=== PATIENT | male | born 1965 | race Caucasian/White ===

== ENCOUNTER → 2020-06-26 11:15 | Outpatient (REF) | payer OTHER, SELFPAY | LOC: ANHLAB 11:15 | PROVIDERS: PCP Internal Medicine; Visit Provider Nurse Practitioner | DX: C44.612 Basal cell carcinoma of skin of right upper limb, including shoulder (principal); C44.519 Basal cell carcinoma of skin of other part of trunk | CPT/HCPCS: 88305 ==

== ENCOUNTER → 2020-08-20 07:16 | Outpatient (REF) | payer OTHER, SELFPAY | LOC: ANHLAB 07:16 | PROVIDERS: PCP Internal Medicine; Visit Provider Nurse Practitioner | DX: C44.612 Basal cell carcinoma of skin of right upper limb, including shoulder (principal); C44.519 Basal cell carcinoma of skin of other part of trunk | CPT/HCPCS: 88305; 88331 ==

== ENCOUNTER 2020-11-30 07:32 | Outpatient (CLI) | payer OTHER, SELFPAY ==
--- NOTE | ~2020-11-30 | US_ITS ---
EXAMINATION: US arterial ankle brachial ind DATE: 11/30/2020 08:11 INDICATION: Open wound of a lower leg TECHNIQUE: Segmental pressures and plethysmographic and Doppler waveforms of the brachial and lower e xtremity arteries were obtained. COMPARISON: None. FINDINGS: Right and left brachial artery pressures of 132 mm Hg and 127 mm Hg, respectively, are concordant (no rmal difference <= 30 mmHg). The right ankle-brachial index (TYSON) is 1.16 (normal >= 0.9-1.0). The right great toe-brachial index (TBI) is 1.09 (normal >= 0.65). Arterial Doppler waveforms are triphasic. The left TYSON is 1.20. The left TBI is 1.11. Arterial Doppler waveforms are triphasic. IMPRESSION: Bilateral normal TYSON and TBI Reviewed, dictated and finalized at [facility]. Reviewed, dictated and finalized at location [facility]. 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
== END 2020-11-30 07:33 | disposition home or self-care (01) ==
LOC: ANHIMG 07:38
PROVIDERS: PCP Internal Medicine; Visit Provider Nurse Practitioner
DX: S81.809A Unspecified open wound, unspecified lower leg, initial encounter (principal); X58.XXXA Exposure to other specified factors, initial encounter
CPT/HCPCS: 93922

== ENCOUNTER → 2020-12-04 14:44 | Outpatient (REF) | payer OTHER, SELFPAY | LOC: ANHLAB 14:44 | PROVIDERS: PCP Internal Medicine; Visit Provider Nurse Practitioner | DX: D49.2 Neoplasm of unspecified behavior of bone, soft tissue, and skin (principal) | CPT/HCPCS: 88305 ==

== ENCOUNTER 2020-12-31 07:34 | Outpatient (RCR) | payer OTHER, SELFPAY ==
[2020-12-17 14:05] VITALS: BMI 34.4
--- NOTE | 2020-12-31 12:51 | WPDPN ---
Progress Note: A&P Assessment and Plan (1) Open wound of leg: Code(s): S81.809A - Unspecified open wound, unspecified lower leg, initial encounter Status: Acute Assessment and Plan: Leg is healing well. We will see him back in wound care. We discussed the care. What monitor for. Answered all of his questions. He will call with any questions or concerns. Will continue to follow with wound care. (2) Skin neoplasm: Code(s): D49.2 - Neoplasm of unspecified behavior of bone, soft tissue, and skin Status: Acute (3) Stasis dermatitis: Code(s): I87.2 - Venous insufficiency (chronic) (peripheral) Status: Acute Exam Narrative: Exam Narrative: Right lower extremity 1 of the wounds has healed. The other has good granulation significant decrease in size. No signs of infection. No hematoma. No seroma. See wound care measurements. Objective Data Meds/Results Medications: Active Medications Generic Name Dose Route Start Last Admin Trade Name Freq PRN Reason Stop Dose Admin Clotrimazole 1 applic 12/17/20 13:21 Betamethasone/Clotrimazole Cr 15 Gm Tube TOPICAL 03/16/21 23:55 PRN PRN Wound Care Mupirocin 1 applic 12/17/20 13:19 Mupirocin 2% Oint 22 Gm Tube TOPICAL 03/16/21 23:55 PRN PRN Wound Care Wound Care/Dressing Products 1 patch 12/17/20 13:20 Mepilex Transfer Drsg 6x8 TOPICAL 03/16/21 23:55 PRN PRN Wound Care Subjective Date/time seen: 12/31/20 12:51 He is here today in follow-up of right lower extremity open wounds. He says he is doing great. No complaints. No fevers or chills. No nausea vomiting. He has noticed wounds getting significantly smaller in size.
--- NOTE | 2021-01-28 12:18 | PCWOUND ---
WOCN NOTE Patient did not show up for appointment or call.
== END 2021-03-04 09:21 | disposition home or self-care (01) ==
LOC: ANHWOC 07:34
PROVIDERS: PCP Internal Medicine; Visit Provider Surgery Plastic and Reconstructive Surgery
DX: I87.2 Venous insufficiency (chronic) (peripheral) (principal)
CPT/HCPCS: 99212; A9270; G0463

== ENCOUNTER 2021-01-31 16:33 | Outpatient (CLI) | payer OTHER, SELFPAY | END 2021-01-31 16:34 | disposition home or self-care (01) | LOC: ANHCOVIDVC 16:33 | PROVIDERS: PCP Internal Medicine | DX: Z23 Encounter for immunization (principal) | CPT/HCPCS: 0001A; 91300 ==

== ENCOUNTER 2021-02-21 16:34 | Outpatient (CLI) | payer OTHER, SELFPAY | END 2021-02-21 16:35 | disposition home or self-care (01) | LOC: ANHCOVIDVC 16:34 | PROVIDERS: PCP Family Medicine | DX: Z23 Encounter for immunization (principal) | CPT/HCPCS: 0002A; 91300 ==

== ENCOUNTER 2022-07-24 11:53 | Outpatient (CLI) | payer OTHER, SELFPAY ==
--- NOTE | ~2022-07-24 | XR_ITS ---
EXAMINATION: XR foot LT 2V DATE: 07/24/2022 12:09 INDICATION: Localized infection the skin and subcutaneous tissues at the left foot one month after st epping on a nail. TECHNIQUE: Dorsoplantar and lateral views of the left foot were obtained. COMPARISON: None. FINDINGS: Old healed diaphyseal fracture of the fourth metatarsal. Polyarticular osteoarthritis throughout the left foot and ankle, severe at the first metatarsophalangeal joint and moderate at severity at the ta rsal metatarsal and multiple interphalangeal joints and mild at the remaining joints at the left foot and ankle. There appears be solid fusion across the second proximal interphalangeal joint. No cortic al erosions, osteolysis or periosteal reaction to suggest osteomyelitis. Moderate Achilles calcaneal spur. Small heterotopic ossicles along the proximal plantar aponeurosis. No radiopaque foreign bodies . IMPRESSION: 1. Moderate to severe polyarticular osteoarthritis at the left foot. No regions suspicious for osteom yelitis. Reviewed, dictated and finalized at location [facility]. IMPRESSION: 1. Moderate to severe polyarticular osteoarthritis at the left foot. No regions suspicious for osteomyelitis.
== END 2022-07-24 11:54 ==
PROVIDERS: PCP Family Medicine; Visit Provider Nurse Practitioner Family
DX: L08.9 Local infection of the skin and subcutaneous tissue, unspecified (principal); M19.072 Primary osteoarthritis, left ankle and foot; M77.32 Calcaneal spur, left foot
CPT/HCPCS: 73620

== ENCOUNTER → 2022-11-06 09:23 | Outpatient (CLI) | payer OTHER, SELFPAY ==
--- NOTE | ~2022-11-06 | XR_ITS ---
EXAMINATION: XR shoulder LT min 2V DATE: 11/06/2022 09:37 INDICATION: Left shoulder pain. TECHNIQUE: 4 views of left shoulder were obtained. COMPARISON: None. FINDINGS: Bone alignment is normal. No fracture. There is mild osteoarthritis of glenohumeral joint a nd moderate osteoarthritis of the acromioclavicular joint. IMPRESSION: 1. Polyarticular osteoarthritis. Reviewed, dictated and finalized at location [facility]. 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
== END ==
PROVIDERS: PCP Family Medicine; Visit Provider Nurse Practitioner Family
DX: M19.012 Primary osteoarthritis, left shoulder (principal)
CPT/HCPCS: 73030

== ENCOUNTER → 2022-12-02 11:13 | Outpatient (CLI) | payer OTHER, SELFPAY ==
--- NOTE | ~2022-12-02 | XR_ITS ---
Left foot Technique: AP, oblique, and lateral views were obtained. Clinical History: Local infection no skin/subcutaneous tissue COMPARISON: 07/24/2022 Findings: No acute fracture or dislocation is seen. Probable old, healed fracture deformity of the fi fth proximal metatarsal. There is severe degenerative change of the first metatarsophalangeal joint. There is moderate to severe degenerative change of the second through fifth tarsometatarsal joints. M ild degenerative change of the tibiotalar joint noted. Large os trigonum noted. Possible focal soft t issue ulcer at the plantar aspect of the foot at the level of the MTP joints. Impression: No acute fracture or evidence for osteomyelitis. Advanced degenerative changes at the first MTP joint and second through fifth TMT joints, stable from prior exam. Probable soft tissue ulcer to plantar aspect of the foot at the level of the MTP joints. Correlate [facility] physical exam. Reviewed, dictated and finalized at [facility]. R FINISHER Impression: No acute fracture or evidence for osteomyelitis. Advanced degenerative changes at the first MTP joint and second through fifth T MT joints, stable from prior exam. Probable soft tissue ulcer to plantar aspect of the foot at the level of the MT P joints. Correlate with physical exam.
== END ==
PROVIDERS: PCP Family Medicine; Visit Provider Nurse Practitioner Family
DX: L08.9 Local infection of the skin and subcutaneous tissue, unspecified (principal); M19.072 Primary osteoarthritis, left ankle and foot
CPT/HCPCS: 73620

== ENCOUNTER 2022-12-09 14:10 | Emergency (ER) | payer OTHER, SELFPAY ==
--- NOTE | ~2022-12-09 | XR_ITS ---
EXAM: XR foot LT min 3V DATE: 12/09/2022 20:32 HISTORY: stepped on nail in august, wound to plantar side left foot . COMPARISON: 12/02/2022. FINDINGS: Normal to increased mineralization. No acute fracture or dislocation. No lytic or blastic lesion. No obvious erosion or periosteal change. Severe periarticular arthritis, may be secondary to degenerative, inflammatory or neuropathic joint arthropathy. Plantar soft tissue defect at the ball o f the foot. Forefoot soft tissue swelling. IMPRESSION: No radiographic evidence of osteomyelitis. No radiopaque foreign body. Reviewed, dictated and finalized at location [facility]. ERCIAL REAL ESTATE ASSISTANT IMPRESSION: No radiographic evidence of osteomyelitis. No radiopaque foreign josiah dy.
[2022-12-09 14:12] VITALS: BP 144/84; PULSE 70; RESP 18; TEMP 36.6; O2SAT 99
[2022-12-09 18:09] VITALS: BP 124/84; PULSE 67; RESP 18; O2SAT 100
[2022-12-09 20:16] LABS: Basophils Percent Auto 0.5 % (0.2-1.2); Eosinophils Absolute Auto 0.2 K/mm3 (0-0.3); Eosinophils Percent Auto 2.8 % (0-4.4); Hematocrit 44.4 % (42.0-52.0); Hemoglobin 15.1 g/dL (14.0-18.0); Immature Granulocyte Absolute 0.02 K/mm3 (0.00-0.031); Immature Granulocyte Percent A 0.3 % (0-0.5); Lymphocytes Percent Auto 38.7 % (18.3-44.2); Mean Corpuscular Volume 91.2 fl (80-100); Mean Platelet Volume 9.6 fl (7.4-10.4); Monocytes Absolute Auto 0.6 K/mm3 (0.1-0.6); Monocytes Percent Auto 8.1 % (2.6-8.5); Neutrophils Absolute Auto 3.7 K/mm3 (1.3-6.7); Neutrophils Percent Auto 49.6 % (45.5-73.1); Platelet Count Result 192 k/mm3 (150-375); Red Blood Count 4.87 M/mm3 (4.6-6.20); Red Cell Distribution Width 12.6 % (11.5-14.5); White Blood Count 7.5 K/mm3 (4.5-10.0)
[2022-12-09 20:30] VITALS: BP 145/96; PULSE 58; RESP 18; O2SAT 100
[2022-12-09 20:31] LABS: Alanine Aminotransferase 33 U/L (6-50); Albumin Level 4.6 g/dL (3.5-5.1); Alkaline Phosphatase 67 U/L (38-126); Anion Gap 6 mmol/L (8-16); Aspartate Amino Transferase 32 U/L (17-59); Bilirubin,Total 1.3 mg/dL (0.2-1.3); Blood Urea Nitrogen 20 mg/dL (9-20); CRP < 0.5 mg/dL (<1.0); Calcium 9.3 mg/dL (8.4-10.2); Carbon Dioxide 30 mmol/L (22-30); Chloride 103 mmol/L (98-107); Estimated CRCL calculation 101 ml/min; Estimated Glomerular Filt Rate > 60; Glucose 97 mg/dL (65-110); Potassium 4.9 mmol/L (3.4-5.0); Sodium 139 mmol/L (137-145)
--- NOTE | 2022-12-09 20:31 | ED.LOWEXIN ---
HPI - Extremity Injury (Lower) General Chief Complaint: Extremity Injury, Lower Stated Complaint: left foot pain Time Seen by Provider: 12/09/22 19:53 Source: patient Mode of arrival: ambulatory Limitations: no limitations History of Present Illness HPI Narrative: Patient is a 57 y/o male who presents to the ED with c/o L foot wound. Patient reports he stepped on a nail in August 2022 on his left plantar foot, between his second and third metacarpals. He reports the wound had nearly closed after the initial incident, but seem to reopen and become infected in October. He saw his primary care doctor and was prescribed Augmentin in October. The wound has continued to remain open. It has now formed a dime sized ulceration to the ball of his foot. He is currently on Keflex, but denies improvement. He notes the wound has been draining some serous drainage. He has been using a wound cream. He has been walking on this, but has pain with it. Denies any fever, nausea, vomiting. Patient denies a history of diabetes. He does report some neuropathy in his feet however. Patient has an appointment with a raw finish mill operator next week. Related Data Allergies Allergy/AdvReac Type Severity Reaction Status Date / Time No Known Allergies Allergy Verified 07/24/22 11:06 Review of Systems Review of Systems: CONSTITUTIONAL: Denies fever, chills, or sweats. CARDIOVASCULAR: Denies chest pain. RESPIRATORY: Denies dyspnea. GASTROINTESTINAL: Denies abdominal pain, nausea, vomiting. SKIN: See HPI. MUSCULOSKELETAL: See HPI. NEUROLOGIC: Denies headache or weakness. All systems reviewed & are unremarkable except as noted in HPI and below PMFSH Past Medical History Medical History BMI 31.0-31.9,adult BMI 32.0-32.9,adult BMI 33.0-33.9,adult Essential hypertension Gastroesophageal reflux disease without esophagitis Hyperkalemia MDD (major depressive disorder) Poor glycemic control Screening for prostate cancer Stasis dermatitis Surgical History Surgical History H/O foot surgery H/O shoulder surgery History of carpal tunnel release Family History Family History Mother Hypertension Family history of arthritis Family history of kidney disease Father Family history of malignant neoplasm of bone Sibling Hypertension Arthritis Social History Social History Years smoked: 5 Smoking status: Former smoker Tobacco type: cigarettes Second hand tobacco smoke exposure: No Smoking end date: 10/26/85 Alcohol intake: current Alcohol use details: Social Substance use: never Substance use type: does not use Living arrangements: with family Occupation/Education: occupation 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 HEAD: Normocephalic, atraumatic. NECK: Supple. No adenopathy, no masses. RESPIRATORY: Airway patent, respirations nonlabored. Clear to auscultation bilaterally, no rales, rhonchi, wheezing. CARDIOVASCULAR: Regular rate and rhythm without murmurs, rubs, or gallops. Pedal pulses 2+ and equal bilaterally. ABDOMINAL: Soft, nontender, nondistended, no hepatosplenomegaly. Normoactive BS. MUSCULOSKELETAL: Moves all extremities. Strength/ROM intact without gross deformities. Distal sensation to left toes intact. 1X1cm ulceration to plantar aspect of ball of L foot between 3rd/4th metatarsals. Wound approximately 0.5-1cm deep. Mostly beefy red tissue, small area of macerated tissue in center of ulcer. Thick surrounding callus formation to ball of foot. Minimal tenderness over calloused regions. N
[2022-12-09 20:57] LABS: Erythrocyte Sedimentation Rate 12 mm/hr (0-20)
== END 2022-12-09 22:22 | disposition home or self-care (01) ==
PROVIDERS: Emergency Provider Physician Assistant; PCP Family Medicine
DX: L97.521 Non-pressure chronic ulcer of other part of left foot limited to breakdown of skin (principal); K21.9 Gastro-esophageal reflux disease without esophagitis; I10 Essential (primary) hypertension; Z87.891 Personal history of nicotine dependence
CPT/HCPCS: 36415; 73630; 80053; 85025; 85652; 86140; 99283

== ENCOUNTER → 2022-12-25 08:19 | Outpatient (CLI) | payer OTHER, SELFPAY ==
--- NOTE | ~2022-12-25 | MR_ITS ---
MRI of the left foot MEDICAL HISTORY: Chronic ulcer TECHNIQUE: Sagittal T1-weighted and STIR images, axial proton-density and proton-density fat-sat imag es, and coronal T1-weighted, STIR, and proton-density fat-sat images were performed. FINDINGS: There is no confluent hypointense T1 marrow signal to suggest osteomyelitis. No acute fract ure seen. There is severe osteoarthritis of the first metatarsophalangeal joint, with joint space darlyn rowing and marked osteophyte formation. There is also advanced degenerative change of the sesamoid me tatarsal articulations at the first MTP joint region. There is mild degenerative change of the interp halangeal joint of the great toe. Remaining joint spaces are relatively well-preserved. There is a chronic healed fracture deformity of the fourth metatarsal shaft versus other chronic ashly gn-appearing periosteal thickening. No significant joint effusion identified in the foot. Flexor and extensor tendons are intact. There is an apparent chronic soft tissue ulcer at the plantar aspect of the foot at the second metatarsal head region. No abscess evident. No intermetatarsal burs itis or Khan's neuroma. IMPRESSION: Soft tissue ulcer to plantar aspect of the foot at the second metatarsal head region. No abscess evid ent. No evidence for osteomyelitis. Severe osteoarthritis of the first MTP joint and sesamoid metatarsal articulations. Reviewed, dictated and finalized at [facility]. RRAL MANAGER IMPRESSION: Soft tissue ulcer to plantar aspect of the foot at the second metatarsal head r egion. No abscess evident. No evidence for osteomyelitis. Severe osteoarthritis of the first MTP joint and sesamoid metatarsal articulati ons.
== END ==
PROVIDERS: PCP Family Medicine; Visit Provider Podiatrist Foot & Ankle Surgery
DX: L97.529 Non-pressure chronic ulcer of other part of left foot with unspecified severity (principal); M19.072 Primary osteoarthritis, left ankle and foot
CPT/HCPCS: 73718

== ENCOUNTER 2025-03-15 08:51 | Outpatient (CLI) | payer OTHER, SELFPAY ==
--- NOTE | ~2025-03-15 | XR_ITS ---
Right Knee Technique: AP, lateral, and sunrise views were obtained. Clinical History: Pain Findings: No fracture or dislocation is seen. There is severe tricompartmental degenerative change. T here is medial compartment narrowing with extensive osteophyte formation throughout the knee. There i s probable subchondral cystic change at the central aspect of the proximal tibia. Soft tissues are un remarkable. No joint effusion is seen. Impression: Severe tricompartmental osteoarthritis, as detailed above. Reviewed, dictated and finalized at location M. Impression: Severe tricompartmental osteoarthritis, as detailed above.
--- OUTSIDE RECORDS SUMMARY | 2025-03-15 09:39 | XMS_ITS | Clinical Summary ---
Author Organization [facility] Address [address] [place] [address] Care Team Providers Care Name Role Phone Unavailable Primary Care Provider Unavailabl e Source Comments [facility],non-owned Affiliates and Associated Physician Practices is amultiple site organization consisting of ambulatory clinics and hospital sitesin [place], [place], [place] and [place]. This disclosure is being madepursuant to the Care Everywhere program and may not contain all information available regarding this patient. 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 SERVICES COORDINATOR Gender Identity Not on file Sexual Orientation Not on file Plan of Treatment Health Maintenance Due Date Last Done Comments COLOGUARD (AGES 45-75) - COL ON CA SCREENING 1965 COLON MONITORING 1965 COLONOSCOPY - COLON CA SCREENING 1965 CT COLONOGRAPHY - COLON CA SCREENING 1965 Colorectal Cancer Screening 1965 FIT - COLON CA SCREENING 1965 FLEX SIG - COLON CA SCREENING 1965 LIPID TESTING 1965 HIV SCREENING 1980 HEPATITIS C SCREENING 07/17/1983 DTAP/TDAP/TD VACCINES (1 - Tdap) 1984 HEPATITIS B VACCINE (1 of 3 - 19+ 3-dose series) 1984 PNEUMOCOCCAL VACCINE 50+ (1 of 1 - PCV) 2015 ZOSTER VACCINE (1 of 2) 2015 COVID-19 VACCINE (2023-2 5 season) 2024 DEPRESSION SCREENING 10/26/2024 INFLUENZA VACCINE (Season Ended) 2025 HIB VACCINE Aged Out No longer eligi ble based on patient's age to complete this topic HPV VACCINE Aged Out No longer eligi ble based on patient's age to complete this topic MENINGOCOCCAL (Group B) VACC INE SHARED DECISION-MAKING Aged Out No longer eligibl e based on patient's age to complete this topic MENINGOCOCCAL GROUPS A/C/Y/W VACCINE Aged Out No longer eligible b ased on patient's age to complete this topic Procedures Procedure Name Priority Date/Time Associated Diagnosis Comments DERMATOPATHOLOGY Routine 03/08/2025 3:33 AM CDT from Last 3 Months Results * DERMATOPATHOLOGY (03/08/2025 3:33 AM CDT) Case Report Dermatopathology Report Case: [id number] Authorizing Provider: Josafat Butler MD Collected: 03/08/2025 03:33 AM Ordering Location: [facility] - Received: 03/09/2025 02:27 PM DermPath Lab Pathologist: Rachel Herrera MD Specimen: Skin, right upper back 1:41 PM CDT DERMATOPATHOLOGY LABORATORY Final Diagnosis Specimen A. SKIN, right upper back: SEBORRHEIC KERATOSIS, INFLAMED (L82.0) PRESENT AT MARGIN 1:41 PM CDT DERMATOPATHOLOGY LABORATORY at 1341 CDT Clinical History Changing Lesion. Please check margins 1:41 PM CDT DERMATOPATHOLOGY LABORATORY Gross Description Specimen A: Received is one formalin filled container labeled with the patient's name and designated right upper back. The specimen consists of a shave biopsy measuring [id number] mm. Jar 0. 1:41 PM CDT DERMATOPATHOLOGY LABORATORY Microscopic Description Specimen A. SKIN, right upper back: There is hyperkeratosis, parakeratosis, papillomatosis, and acanthosis of the epidermis. There is a lymphohistiocytic infiltrate within the papillary dermis that is focally lichenoid. This lesion is present at the margin of the specimen. 5 1:41 PM CDT DERMATOPATHOLOGY LABORATORY Disclaimer An external and internal positive and negative controls are appropriate for the histochemical, immunohistochemical and immunofluorescence stain(s) in this case (if any), except where stated explicitly. The performance characteristics of the stain(s) cited in this report were developed and its performance characteristic determined by the Dermatopathology Laboratory at [facility], directed by Dr. Tierra Garcia. These tests need not be, and therefore are not, approved by the [place] Food and Drug Administration. The tests are used for clinical purposes. Billing Codes Specimen Charges Stain Charges 01609 1 5 1:41 PM CDT DERMATOPATHOLOGY LABORATORY Embedded Images 5 1:41 PM CDT DERMATOPATHOLOGY LABORATORY Pathology/Cytolo gy TISSUE SPECIMEN FROM SKIN / Unknown 03/08/2025 3:33 AM CDT 03/09/2025 2:27 PM CDT Josafatarmond Butler MD LAB - PATHOLOGY/CYTOLOGY ANGELITO CARRILLO Final Result DERMATOPATHOLOGY LABORATORY [facility] - Department of Dermatology [facility] Medicine [address] [place] [address], [address] [phone] from Last 3 Months Insurance CARE [facility]
--- OUTSIDE RECORDS SUMMARY | 2025-03-15 09:39 | XMS_ITS | Encounter Summary ---
Author Organization [facility] Address [address] [place] [address] Care Team Providers Care Die Forger Name Role Phone Unavailable Primary Care Provider Unavailabl e Encounter Details Date Type Department Care Team (Late st Contact Info) Description 03/09/2025 Lab Requisition [facility] [place] [facility] - DermPath Lab [address] [place] [address] Josafat Butler MD [address] [place] [address] Social History Tobacco Use Types Packs/Day Years Used Date Smoking Tobacco: Never Assessed Sex and Gender Information Value Date Recorded Sex Assigned at Not on file Legal Sex Male 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 Gender Identity Not on file Sexual Orientation Not on file documented as of this encounter Plan of Treatment Not on file documented as of this encounter Procedures Procedure Name Priority Date/Time Associated Diagnosis Comments DERMATOPATHOLOGY Routine 03/08/2025 3:33 AM CDT documented in this encounter Results * DERMATOPATHOLOGY (03/08/2025 3:33 AM CDT) Case Report Dermatopathology Report Case: [id number] Authorizing Provider: Josafat Butler MD Collected: 03/08/2025 03:33 AM Ordering Location: [facility] Physician [facility] - Received: 03/09/2025 02:27 PM DermPath Lab [...] specimen consists of a shave biopsy measuring [id number] mm. Jar 0. 1:41 PM CDT DERMATOPATHOLOGY LABORATORY Microscopic Description Specimen A. SKIN, right upper back: There is hyperkeratosis, parakeratosis, papillomatosis, and acanthosis of the epidermis. There is a lymphohistiocytic infiltrate within the papillary dermis that is focally lichenoid. This lesion is present at the margin of the specimen. 1:41 PM CDT DERMATOPATHOLOGY LABORATORY Disclaimer An external and internal positive and negative controls are appropriate for the histochemical, immunohistochemical and immunofluorescence stain(s) in this case (if any), except where stated explicitly. The performance characteristics of the stain(s) cited in this report were developed and its performance characteristic determined by the Dermatopathology Laboratory at [facility], directed by Dr. Tierra Garcia. These tests need not be, and therefore are not, approved by the [place] Food and Drug Administration. The tests are used for clinical purposes. Billing Codes Specimen Charges Stain Charges 15068 1 1:41 PM CDT DERMATOPATHOLOGY LABORATORY Embedded Images 1:41 PM CDT DERMATOPATHOLOGY LABORATORY Pathology/Cytolo gy TISSUE SPECIMEN FROM SKIN / Unknown 03/08/2025 3:33 AM CDT 03/09/2025 2:27 PM CDT us Josafatarmond Butler MD LAB - PATHOLOGY/CYTOLOGY ANGELITO CARRILLO Final Result DERMATOPATHOLOGY LABORATORY [facility] - Department of Dermatology [address] [place] [address], [facility] [phone] documented in this encounter Visit Diagnoses Not on filedocumented in this encounter
--- OUTSIDE RECORDS SUMMARY | 2025-03-15 09:39 | XMS_ITS | Clinical Summary ---
Author Organization [facility] Address [address] [place] [address] Care Team Providers Care Lens Mold Setter Name Role Phone Josafat Butler MD Primary Care Provider [phone] Allergies No known active allergies Medications atenoloL (TENORMIN) 50 mg tablet Take 1 tablet (50 mg total) by mouth daily 01/24/[address] (VOLTAREN) 75 mg EC tablet Take 1 tablet (75 mg total) by mouth once 10/02/2014 Active FLUoxetine (PROzac) 20 mg capsule Take 1 capsule (20 mg total) by mouth daily 10/02/[address] (PROTONIX) 40 mg EC tablet Take 1 tablet (40 mg total) by mouth daily 01/24/2014 Active rosuvastatin (CRESTOR) 40 mg tablet Take 1 tablet (40 mg total) by mouth daily 02/19/2023 Active HYDROcodone-lili taminophen (NORCO) 5-325 mg per tabletIndicatio ns:Pain Take 1 tablet by mouth 4 (four) times a day as needed for pain 8 tablet 05/14/2023 Active Active Problems Problem Noted Date Diagnosed Date Cellulitis of left foot 05/08/2023 Cellulitis of foot, left 05/07/2023 Cellulitis of foot 05/07/2023 Acute osteomyelitis of left ankle or foot 2022 Immunizations Immunization Administration Dates Next Due Tdap 07/24/2022,04/22/2014 ZOSTER Recombinant 12/10/2021,08/23/2021 Medical History Medical History Date Comments GERD (gastroesophageal reflux disease) Hypertension HLD (hyperlipidemia) Depression Sleep apnea Social History Tobacco Use Types Packs/Day Years Used Date Smoking Tobacco: Never Smokeless Tobacco: Never Tobacco Cessation:Counseling Given: Not Answered PHQ-2 Answer Date Recorded PHQ-2 Total Score (If total score is 3 or more points, staff should administer the PHQ-9) 0 05/14/2023 Personal Safety Answer Date Recorded Have you ever been in or are you currently in a harmful physical or emotional relationship or is someone making you feel afraid or unsafe? Denies 05/07/2023 Sex and Gender Information Value Date Recorded Sex Assigned at Not on file Legal Sex Male 1:42 PM CDT Gender Identity Not on file Sexual Orientation Not on file Obstetrics History Last Filed Vital Signs Vital Sign Reading Time Taken Comments Blood Pressure 119/76 05/14/2023 11:00 AM CDT Pulse 63 05/14/2023 11:00 AM CDT Temperature 36.8 C (98.2 F) 06/18/2023 3:06 PM CDT Respiratory Rate 16 05/14/2023 11:0 0 AM CDT Oxygen Saturation 97% 05/14/2023 11: 00 AM CDT Inhaled Oxygen Concentration - - Weight 122.8 kg (270 lb 12.8 oz) 06/18/2023 3:06 PM CDT Height 190.5 cm (6' 3 ) 05/07/2023 2:29 PM CDT Body Mass Index 33.85 05/07/2023 2:29 PM CDT Plan of Treatment Health Maintenance Due Date Last Done Comments Colon Cancer Screening-Colonoscopy 1965 Hepatitis C Screening 1965 Prostate Cancer Screening-PSA 1965 Hepatitis B Screening 1983 Regular Well Visit/Exam 18-64 1983 Depression Screening 05/07/2024 05/07/2023 Covid-19 Vaccine (4 - 2023-2 5 season) 2024 10/29/2021, 02/21/2021, 01/31/2021 Influenza Vaccine (#1) 2024 DTaP/Tdap/Td Vaccine (3 - Td or Tdap) 07/24/2032 07/24/2022, 04/22/2014 Zoster Vaccine Completed 12/10/2021, 08/23/2021 Pneumococcal vaccine <65 Aged Out No longer eligible based on patient's age to complete this topic Insurance O O Advance Directives For more information, please contact: [phone] * Full Code (Latest Code Status on File) Date Activated Date Inactivated Comments 05/07/2023 1:20 PM 05/14/2023 7:58 PM Care Teams Lens Mold Setter Relationship Specialty Start Date End Date Josafat Butler MD PCP - General Family Medicine 05/04/23
--- OUTSIDE RECORDS SUMMARY | 2025-03-15 09:39 | XMS_ITS | Referral Summary ---
Author Organization [facility] Address [address] [place] [address] Care Team Providers Care Operations And Maintenance Specialist Name Role Phone Josafat Butler MD Primary Care Provider [phone] Allergies No known active allergies Medications atenoloL [...] Next Due Tdap 07/24/2022,04/22/2014 ZOSTER Recombinant 12/10/2021,08/23/2021 Social History Tobacco Use Types Packs/Day Years [...] on file Sexual Orientation Not on file Last Filed Vital Signs Vital Sign Reading [...] 05/07/2023 2:29 PM CDT Plan of Treatment Not on file Insurance O Advance Directives For more information, please contact: [phone] * Full Code (Latest Code Status on File) Date Activated Date Inactivated Comments 05/07/2023 1:20 PM 05/14/2023 7:58 PM Care Teams Operations And Maintenance Specialist Relationship Specialty Start Date End Date Josafat Butler MD PCP - General Family Medicine 05/04/23
--- OUTSIDE RECORDS SUMMARY | 2025-03-15 09:39 | XMS_ITS | CONTINUITY OF CARE DOCUMENT ---
Author Name filibertopatti filibertopatti Address Unknown Organization [facility] Address [address] [place] [address] Phone [phone] Care Team Providers Care Secretary Office Clerk Name Role Phone Jarocho Lima MD Unavailable [phone] KAREN SPANGLER MD Unavailable KAREN SPANGLER MD Unavailable PROBLEMS Condition Status Date Provider Notes Pre-diabetes active KAREN SPANGLER MD HTN essential active KAREN SPANGLER MD Hyperlipidemia active KAREN SPANGLER MD Thoracic or lumbosacral neur itis or radiculitis, unspecified active KAREN SPANLGER MD Sleep apnea active KAREN SPANGLER MD GERD active KAREN SPANGLER MD Depression active KAREN SPANGLER MD ENCOUNTERS Date Type Provider Location Encounter Diag nosis - In-person encounter Office Visit KAREN SPANGLER MD [facility] - In-person encounter Office Visit KAREN SPANGLER MD [facility] - In-person encounter Office Visit KAREN SPANGLER MD [facility] - In-person encounter Office Visit KAREN SPANGLER MD [facility] - In-person encounter Office Visit KAREN SPANGLER MD [facility] - In-person encounter Office Visit KAREN SPANGLER MD [facility] DepressionGERDSleep apneaThoracic or lumbosacral neuritis or radiculitis, unspecifiedHyperlipidemiaHTN essential - In-person encounter Office Visit [facility] - In-person encounter Office Visit [facility] - In-person encounter Office Visit [facility] - In-person encounter Office Visit [facility] RESULTS Date Observation Value Provider Reference Range Interpretation Location 6 thyroid stimulating hormone, serum 2.700 ??IU/ML [facility] 0.270 - 4.200 very low density lipoproteins 85.4 mg/dL [facility] 5.0 - 40.0 High 6 LDL/HDL (low-density lipoprotein/high-den sity lipoprotein) ratio -40.0 RATIO [facility] - 6 lipoprotein, beta, serum, point, quantitative, calculated -999.0 (?) [facility] 0.0 - 100.0 Low 6 HDL cholesterol, serum 25.0 mg/dL [facility] 35.0 - 55.0 Low 6 cholesterol, serum 180.0 mg/dL [facility] 0.0 - 200.0 6 triglyceride, serum, fasting 427.0 mg/dL [facility] 0.0 - 150.0 High 6 Total LDL-cholesterol direct 96.0 mg/dL [facility] 0.0 - 100.0 6 anion gap, serum 13.2 [facility] - 6 albumin/globulin ratio, serum 1.7 g/dL [facility] 1.1 - 2.5 6 globulin, serum 2.7 [facility] 2.3 - 3.8 6 urea nitrogen/creatinine ratio, serum 15.0 [facility] - 6 Estimated Glomerular Filtration Rate (calc) 83.7 (?) [facility] 59.0 - chloride, serum 101.8 mmol/L [facility] 98.0 - 107.0 potassium, serum 4.6 mmol/L [facility] 3.5 - 5.1 sodium, serum 141.0 mmol/L [facility] 136.0 - 145.0 creatinine, serum 1.0 mg/dL [facility] 0.7 - 1.2 carbon dioxide, venous blood 26.0 mmol/L [facility] 22.0 - 29.0 albumin, serum 4.5 g/dL [facility] 3.5 - 5.2 calcium, serum 9.7 mg/dL [facility] 8.6 - 10.2 aspartate aminotransferase (SGOT), serum 33.0 1/L [facility] 0.0 - 40.0 alkaline phosphatase, serum 82.0 1/L [facility] 40.0 - 130.0 alanine aminotransferase (SGPT), serum 40.0 1/L [facility] 0.0 - 41.0 protein, total, serum 7.2 g/dL [facility] 6.6 - 8.7 bilirubin, serum, total 0.6 mg/dL [facility] 0.0 - 1.2 urea nitrogen, blood 15.0 mg/dL [facility] 6.0 - 20.0 blood glucose, random 111.0 mg/dL [facility] - [facility].0 High red blood cell distribution width, size density 44.3 fL [facility] - immature granulocytes, percentage of total cells, blood 0.9 % [facility] - nucleated red blood cells as percent of blood leukocytes 0.0 % [facility] red blood cell (erythrocyte) count, per high power field 0.0 10*3/UL [facility] - eosinophils as percent of blood leukocytes 2.6 % [facility] - neutrophils as percent of blood leukocytes 52.9 % [facility] - 6 Absolute Neutrophils 2.9 CELLS/UL [facility] 1.5 - 7.8 6 basophils as percent of blood leukocytes 0.7 % [facility] - 6 Absolute Basophils 0.0 CELLS/UL [facility] 0.0 - 0.2 6 monocytes as percent of blood leukocytes 7.1 % [facility] - 6 Absolute Monocytes 0.4 CELLS/UL [facility] 0.2 - 1.0 6 lymphocytes as percent of blood leukocytes 35.8 % [facility] - 6 Absolute Lymphocytes 2.0 CELLS/UL [facility] 0.9 - 3.9 6 mean platelet volume 10.8 (?) [facility] - 6 platelet count 182.0 THOUSAND/ UL [facility] 100.0 - 400.0 6 mean corpuscular hemoglobin concentration, RBC 33.3 G/DL [facility] 31.0 - 38.0 6 mean corpuscular hemoglobin, RBC 30.9 pg [facility] 25.0 - 35.0 6 mean corpuscular volume, RBC 92.8 fL [facility] 75.0 - 100.0 6 hematocrit, blood 46.6 % [facility] 35.0 - 55.0 6 hemoglobin, blood 15.5 g/dL [facility] 11.5 - 16.5 6 erythrocyte count, whole blood 5.0 MILLION/U L [facility] 3.5 - 5.5 6 hemoglobin A1C, blood, as % of total hemoglobin 5.4 % [facility] 4.0 - 5.6 5 thyroid stimulating hormone, serum 2.240 ??IU/ML [facility] 0.270 - 4.200 5 prostate specific antigen 0.5 ng/mL [facility] 0.0 - 4.0 5 very low density lipoproteins 53.2 mg/dL [facility] 5.0 - 40.0 High 5 LDL/HDL (low-density lipoprotein/high-den sity lipoprotein) ratio 4.0 RATIO [facility] - lipoprotein, beta, serum, point, quantitative, calculated 106.8 (?) [facility] 0.0 - 100.0 High HDL cholesterol, serum 27.0 mg/dL [facility] 35.0 - 55.0 Low cholesterol, serum 187.0 mg/dL [facility] 0.0 - 200.0 triglyceride, serum, fasting 266.0 mg/dL [facility] 0.0 - 150.0 High anion gap, serum 13.8 [facility] - albumin/globulin ratio, serum 2.5 g/dL [facility] 1.1 - 2.5 5 globulin, serum 3.0 [facility] 2.3 - 3.8 urea nitrogen/creatinine ratio, serum 12.5 [facility] - Estimated Glomerular Filtration Rate (calc) 68.1 (?) [facility] 59.0 - 5 chloride, serum 102.2 mmol/L [facility] 98.0 - 107.0 5 potassium, serum 4.7 mmol/L [facility] 3.5 - 5.1 5 sodium, serum 141.0 mmol/L [facility] 136.0 - 145.0 5 creatinine, serum 1.2 mg/dL [facility] 0.7 - 1.2 carbon dioxide, venous blood 25.0 mmol/L [facility] 22.0 - 29.0 albumin, serum 4.2 g/dL [facility] 3.5 - 5.2 5 calcium, serum 9.6 mg/dL [facility] 8.6 - 10.2 5 aspartate aminotransferase (SGOT), serum 41.0 1/L [facility] 0.0 - 40.0 High alkaline phosphatase, serum 71.0 1/L [facility] 40.0 - 130.0 alanine aminotransferase (SGPT), serum 51.0 1/L [facility] 0.0 - 41.0 High 5 protein, total, serum 7.2 g/dL [facility] 6.6 - 8.7 5 bilirubin, serum, total 1.0 mg/dL [facility] 0.0 - 1.2 5 urea nitrogen, blood 15.0 mg/dL [facility] 6.0 - 20.0 5 blood glucose, random 106.0 mg/dL [facility] 74.0 - 99.0 High 5 red blood cell distribution width, size density 43.0 fL [facility] - 5 immature granulocytes, percentage of total cells, blood 0.2 % [facility] - 5 nucleated red blood cells as percent of blood leukocytes 0.0 % [facility] - 5 red blood cell (erythrocyte) count, per high power field 0.0 10*3/UL [facility] - 5 eosinophils as percent of blood leukocytes 3.7 % [facility] - 5 neutrophils as percent of blood leukocytes 46.3 % [facility] - 5 Absolute Neutrophils 2.1 CELLS/UL [facility] 1.5 - 7.8 5 basophils as percent of blood leukocytes 0.9 % [facility] - 5 Absolute Basophils 0.0 CELLS/UL [facility] 0.0 - 0.2 5 monocytes as percent of blood leukocytes 7.2 % [facility] Absolute Monocytes 0.3 CELLS/UL [facility] 0.2 - 1.0 5 lymphocytes as percent of blood leukocytes 41.7 % [facility] - 5 Absolute Lymphocytes 1.9 CELLS/UL [facility] 0.9 - 3.9 5 mean platelet volume 10.7 (?) [facility] - 5 platelet count 177.0 THOUSAND/ UL [facility] 100.0 - 400.0 5 mean corpuscular hemoglobin concentration, RBC 32.1 G/DL [facility] 31.0 - 38.0 5 mean corpuscular hemoglobin, RBC 30.0 pg [facility] 25.0 - 35.0 mean corpuscular volume, RBC 93.3 fL [facility] 75.0 - 100.0 hematocrit, blood 46.1 % [facility] 35.0 - 55.0 hemoglobin, blood 14.8 g/dL [facility] 11.5 - 16.5 erythrocyte count, whole blood 4.9 MILLION/U L [facility] 3.5 - 5.5 hemoglobin A1C, blood, as % of total hemoglobin 5.4 % [facility] 4.0 - 6.0 HISTORY OF MEDICATION USE Medication Status Instructions Dates Provider Indications Com ments ATENOLOL 50 MG ORAL TABLET active ONE TABLET DAILY KAREN SPANGLER MD DICLOFENAC SODIUM 75 MG ORAL TABLET DELAYED RELEASE active ONE TABLET DAILY KAREN SPANGLER MD PANTOPRAZOLE SODIUM 40 MG ORAL TABLET DELAYED RELEASE active ONE TABLET DAILY KAREN SPANGLER MD PROZAC 20 MG ORAL CAPSULE active ONE CAPSULE DAILY KAREN SPANGLER MD INSURANCE PROVIDERS Payer name Policy type / Coverage type [place] red libertarian ID [id number] [employer] 8 [id number] TREATMENT PLAN Date Name HEMOGLOBIN A1c TSH, 3RD GENERATION T-4, FREE LIPID PANEL COMPREHENSIVE METABO LIC PANEL, W/EGFR CBC (INCLUDES DIFF/P LT) HEMOGLOBIN A1c PSA, TOTAL TSH, 3RD GENERATION W/REFLEX TO FT4 LIPID PANEL COMPREHENSIVE METABO LIC PANEL W/EGFR CBC (INCLUDES DIFF/P LT)
== END 2025-03-15 08:52 | disposition home or self-care (01) ==
PROVIDERS: PCP Family Medicine
DX: M17.11 Unilateral primary osteoarthritis, right knee (principal); G89.29 Other chronic pain
CPT/HCPCS: 73564